=== PATIENT | female | born 1980 | race Caucasian/White ===

== ENCOUNTER 2024-05-27 20:23 | Emergency (ER) | payer OTHER, SELFPAY ==
[2024-05-27] VITALS (13 sets, daily range): BP systolic 96–133; BP diastolic 58–85; PULSE 98–114; TEMP 36.8; O2SAT 98; BMI 23.3
--- NOTE | 2024-05-27 20:29 | XR_ITS ---
The [address] [address] Patient Name: CRISTY CALDERON MRN: [id number] date: 1980 Sex: F Assigned Patient Location: ER Current Patient Location: Accession/Order Number: [id number] Exam Date: 05/27/2024 20:40 Report Date: 05/27/2024 22:20 At the request of: PATRIC ARCEO Procedure: XR chest 1V EXAM: XR chest 1V HISTORY: Dizziness COMPARISON: None. TECHNIQUE: Chest X-ray AP, 1 view FINDINGS: Support devices: None. Lungs/pleura: No consolidation, effusion, or pneumothorax. Heart and mediastinum: Normal contours. Bones: No acute abnormality identified. XR/XR chest 1V Impression: No radiographic evidence of acute cardiopulmonary process. Electronically authenticated by: SHIRLEY CRANE Date: 05/27/2024 22:20
--- NOTE | 2024-05-27 20:29 | ECG_ITS ---
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
--- NOTE | 2024-05-27 20:31 | ED.GENADUL1 ---
HPI HPI - General Adult General Chief complaint: Dizziness Stated complaint: Dizziness Time Seen by Provider: 05/27/24 20:24 Source: patient Mode of arrival: ambulance Limitations: no limitations History of Present Illness HPI narrative: 44-year-old female presents to the emergency department for dizziness. She did not pass out. She has been at a drug rehab facility for about 63 days and she had eaten dinner and she went outside for smoke. All day she had been feeling well, fatigued. No fever or vomiting or diarrhea or chest pain. She went outside from the smoke and she got very lightheaded and almost passed out but she did not. She states she has been clean from drugs for over 63 days. Related Data Allergies Allergy/AdvReac Type Severity Reaction Status Date / Time No Known Drug Allergies Allergy Verified 05/27/24 20:25 Opioid HPI Opioid Management Most Recent Opioid Data: No Data to Display Review of Systems ROS Narrative A ten point review of systems is negative except as noted above. PFSH PFSH Social History Little interest or pleasure in doing things: not at all Feeling down, depressed, or hopeless: not at all Exam Narrative Exam Narrative: Nurses note and vital signs reviewed and patient is not hypoxic. General: The patient appears well and in no apparent distress. Patient is resting comfortably on cart. Skin: Warm, dry, no pallor noted. There is no rash noted. Head: Normocephalic, atraumatic Eye: Normal conjunctiva, no drainage Ears, Nose, Mouth, and Throat: oral mucosa is moist. Nares patent. Cardiovascular: Regular Rate and Rhythm Respiratory: Patient is in no distress, no accessory muscle use, lungs are clear to auscultation, no wheezing, rales or rhonchi Back: non-tender GI: Soft and nontender Musculoskeletal: The patient has no evidence of calf tenderness, no pitting edema, symmetrical pulses noted bilaterally Neurological: A&O, normal speech, upper and lower extremity strength intact. Psychiatric: Cooperative Constitutional Vital Signs, click to edit/add: Last Vital Signs Temp 98.3 F 05/27/24 20:25 Pulse 112 H 05/27/24 21:50 Resp 28 H 05/27/24 21:50 BP 96/58 05/27/24 21:30 Pulse Ox 98 05/27/24 20:25 O2 Del Method Room Air 05/27/24 20:25 Course Vital Signs Vital signs: Vital Signs Pulse Rate 100 H 05/27/24 20:24 Respiratory Rate 24 H 05/27/24 20:24 Temperature 98.3 F 05/27/24 20:25 Pulse Rate 112 H 05/27/24 21:50 Respiratory Rate 28 H 05/27/24 21:50 Blood Pressure 96/58 05/27/24 21:30 Pulse Oximetry 98 05/27/24 20:25 Oxygen Delivery Method Room Air 05/27/24 20:25 Medical Decision Making MDM Narrative Medical decision making narrative: Her laboratory analysis is negative. COVID and influenza are negative and chest x-ray my interpretation shows no acute findings. She was given IV fluids and Zofran and feels improved and she is able to be discharged. Treatment diagnosis and follow-up were discussed with the patient. Differential Diagnosis Differential Diagnosis: Dehydration, COVID, influenza, viral illness Lab Data Lab results reviewed: Yes I reviewed the patient's lab results Labs: Lab Results 05/27/24 05/27/24 Range/Units 20:32 20:48 WBC 5.0 (4.0-11.0) 10^3/uL RBC 3.94 L (4.20-5.40) 10^6/uL Hgb 11.7 L (12.0-16.0) g/dL Hct 35.6 L (36.0-48.0) % MCV 90.4 (81.0-99.0) fL MCH 29.7 (26.7-34.0) pg MCHC 32.9 (29.9-35.2) g/dL RDW 14.1 (11.0-15.0) % Plt Count 242 (150-450) 10^3/uL MPV 10.8 (9.5-13.5) fL Neut % (Auto) 44.4 (43.0-75.0) % Lymph % (Auto) 39.2 (20.5-60.0) % [facility] % (Auto) 12.4 H (1.7-12.0) % Eos % (Auto) 3.2 (0.9-7.0) % Baso % (Auto) 0.8 (0.2-2.0) % Neut # (Auto) 2.2 (1.4-6.5) 10^3/uL Lymph # (Auto) 2.0 (1.2-3.8) 10^3/uL [facility] # (Auto) 0.6 (0.3-0.8) 10^3/uL Eos # (Auto) 0.2 (0.0-0.7) 10^3/uL Baso # (Auto) 0.0 (0.0-0.1) 10^3/uL Abs Immat Gran (auto) 0.00 (0.00-0.03) 10^3/uL Imm/Tot Granulo (auto) 0.0 (0.0-0.5) % Sodium 142 (136-145) mmol/L Potassium 4.2 (3.5-5.1) mmol/L Chloride 105 (98-107) mmol/L Carbon Dioxide 26.0 (21.0-32.0) mmol/L Anion Gap 15.2 BUN 13.0 (7.0-18.0) mg/dL Creatinine 0.84 (0.55-1.02) mg/dL Est GFR ( Amer) >60 (>=60 mL/min/1.73m^2) Est GFR (Non-Af Amer) >60 (>=60 mL/min/1.73m^2) BUN/Creatinine Ratio 15.5 Glucose 70 L (74-106) mg/dL Calcium 9.2 (8.5-10.1) mg/dL Influenza Type A Ag Negative Influenza Type B Ag Negative SARS-CoV-2 Ag (CV2AG) Negative (NEGATIVE) Imaging Data Chest x-ray: My impression: No acute findings ECG Data Attestation: I personally reviewed and interpreted this ECG as follows: (EKG on my interpretation shows sinus rhythm with rate of 99 and no acute changes.) Discharge Plan Discharge Chief Complaint: Dizziness Clinical Impression: Dizziness Patient Disposition: Home, Self-Care Time of Disposition Decision: 21:53 Condition: Good Mode of Transportation: Private Vehicle Print Language: Czech Instructions: Dizziness (ED) Referrals: Physician,Non-Staff, MD [Primary Care Provider] - 1 week
[2024-05-27] MEDS: 0.9 % SODIUM CHLORIDE 1,000 ML 1000 ML IV (20:45)
[2024-05-27] MEDS: ONDANSETRON PF 4 MG/2 ML VIAL IV (20:45)
[2024-05-27 20:53] LABS: Basophils Percent Auto 0.8 % (0.2-2.0); Eosinophils Absolute Auto 0.2 10^3/uL (0.0-0.7); Eosinophils Percent Auto 3.2 % (0.9-7.0); Hematocrit 35.6 % (36.0-48.0); Hemoglobin 11.7 g/dL (12.0-16.0); Lymphocytes Percent Auto 39.2 % (20.5-60.0); Mean Corpuscular HGB Conc 32.9 g/dL (29.9-35.2); Mean Corpuscular Hemoglobin 29.7 pg (26.7-34.0); Mean Corpuscular Volume 90.4 fL (81.0-99.0); Mean Platelet Volume 10.8 fL (9.5-13.5); Monocytes Absolute Auto 0.6 10^3/uL (0.3-0.8); Monocytes Percent Auto 12.4 % (1.7-12.0); Neutrophils Absolute Auto 2.2 10^3/uL (1.4-6.5); Neutrophils Percent Auto 44.4 % (43.0-75.0); Platelet Count 242 10^3/uL (150-450); Red Blood Count 3.94 10^6/uL (4.20-5.40); Red Cell Distribution Width 14.1 % (11.0-15.0)
[2024-05-27 21:02] LABS: Anion Gap 15.2; BUN Creatinine Ratio 15.5; Calcium 9.2 mg/dL (8.5-10.1); Chloride 105 mmol/L (98-107); Estimated GFR (African America >60 (>=60 mL/min/1.73m^2); Estimated GFR (Non-African Ame >60 (>=60 mL/min/1.73m^2); Glucose 70 mg/dL (74-106); Potassium 4.2 mmol/L (3.5-5.1); Sodium 142 mmol/L (136-145)
[2024-05-27 21:04] LABS: Influenza Virus A Antigen Negative; Influenza Virus B Antigen Negative; Internal Control Within Normal Limits; SARS-CoV-2 Ag NEGATIVE (NEGATIVE)
== END 2024-05-27 22:06 | disposition home or self-care (01) ==
PROVIDERS: Emergency Provider Emergency Medicine
DX: R42 Dizziness and giddiness (principal); Z20.822 Contact with and (suspected) exposure to COVID-19
CPT/HCPCS: 36415; 71045; 80048; 85025; 87804; 87811; 93005; 96361; 96374; 99285; J2405

== ENCOUNTER 2024-05-31 07:05 | Outpatient (OUT) | payer OTHER, SELFPAY ==
--- NOTE | 2024-05-31 | MM_ITS ---
Patient Name: CRISTY CALDERON MR#: [id number] : 1980 Exam Date: 05/31/2024 Ordering Doctor: DR Home Jo . RADIOLOGY REPORT PROCEDURE: MM TOMOSYNTHESIS SCREENING BI COMPARISON: None. INDICATIONS: Screening mammography Calculator Name NCI Breast Cancer Risk Assessment Tool 5 Year Breast Cancer Risk 0.80% Lifetime Breast Cancer Risk 9.80% Personal Breast Cancer No Personal Ovarian Cancer No Treatments None Family Cancers None LOCATION: The [facility] BREAST COMPOSITION: The breasts are heterogeneously dense,which may obscure small masses. FINDINGS: DIAGNOSTIC CATEGORY 2--BENIGN FINDING. NO CHANGE FROM COMPARISON. Scattered benign-appearing calcifications are present. RIGHT BREAST: No significant suspicious finding. LEFT BREAST: No significant suspicious finding. RECOMMENDATIONS: ROUTINE MAMMOGRAM AND CLINICAL EVALUATION IN 12 MONTHS. PLEASE NOTE: A NORMAL MAMMOGRAM DOES NOT EXCLUDE THE POSSIBILITY OF BREAST CANCER. A CLINICALLY SUSPICIOUS PALPABLE LUMP SHOULD BE BIOPSIED. Dictated by: Elroy Brar MD on 05/31/2024 at 08:52 Approved by: Elroy Brar MD on 05/31/2024 at 08:53
--- OUTSIDE RECORDS SUMMARY | 2024-05-31 07:08 | XMS_ITS | CCD ---
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 Stage\X09\Description\X09\X09\X09\X09\eGFR (mL/min/1.73m2) G1\X09\Normal or high\X09\X09\X09\X09\>=90 G2\X09\Mildly decreased\X09\X09\X09\ G3a\X09\Mildly to moderately decreased\X09\ G3b\X09\Moderately to severely decreased\X09\ G4\X09\Severely decreased\X09\X09\X09\ G5\X09\Kidney Failure\X09\X09\X09\X09\<15 Release to patient->Immediate Performed By: #### L [id number] #### [address] Urea nitrogen [Mass/Vol] 10 mg/dL Normal 7-25 [facility] Comment on above: Order Comment: KDIGO 2012 GFR Categories Stage\X09\Description\X09\X09\X09\X09\eGFR (mL/min/1.73m2) G1\X09\Normal or high\X09\X09\X09\X09\>=90 G2\X09\Mildly decreased\X09\X09\X09\ G3a\X09\Mildly to moderately decreased\X09\ G3b\X09\Moderately to severely decreased\X09\ G4\X09\Severely decreased\X09\X09\X09\ G5\X09\Kidney Failure\X09\X09\X09\X09\<15 Release to patient->Immediate Performed By: #### L [id number] #### [place] [id number] [facility] CBC W/DIFFon 09-18-2023 BASOPHILS ABS AUTO 0.0 K/uL Normal 0.0-0.1 [facility] Comment on above: Order Comment: Relea se to patient->Immediate Performed By: #### L [id number] #### [address] Basophils/100 WBC (Bld) 0.3 % Normal [facility] Comment on above: Order Comment: Relea se to patient->Immediate Performed By: #### L [id number] #### [address] Eosinophils (Bld) [#/Vol] 0.0 10*3/uL Normal 0.0-0.4 [facility] Comment on above: Order Comment: Relea se to patient->Immediate Performed By: #### L [id number] #### [address] Eosinophils/100 WBC (Bld) 0.1 % Normal [facility] Comment on above: Order Comment: Relea se to patient->Immediate Performed By: #### L [id number] #### [address] Erythrocyte distribution width (RBC) [Ratio] 14.6 % Normal 11.7-15.2 [facility] Comment on above: Order Comment: Relea se to patient->Immediate Performed By: #### L [id number] #### [address] Hematocrit (Bld) [Volume fraction] 28.3 % Abnormal 35.8-46.5 [facility] Comment on above: Order Comment: Relea se to patient->Immediate Performed By: #### L [id number] #### [address] Hemoglobin (Bld) [Mass/Vol] 9.5 g/dL Abnormal 12.1-15.8 [facility] Comment on above: Order Comment: Relea se to patient->Immediate Performed By: #### L [id number] #### [address] Lymphocytes (Bld) [#/Vol] 0.8 10*3/uL Normal 0.8-3.6 [facility] Comment on above: Order Comment: Relea se to patient->Immediate Performed By: #### L [id number] #### [address] Lymphocytes/100 WBC (Bld) 11.1 % Normal [facility] Comment on above: Order Comment: Relea se to patient->Immediate Performed By: #### L [id number] #### [address] MCH (RBC) [Entitic mass] 29.2 pg Normal 28.4-33.4 [facility] Comment on above: Order Comment: Relea se to patient->Immediate Performed By: #### L [id number] #### [address] MCHC (RBC) [Mass/Vol] 33.5 g/dL Normal 31.1-37.0 [facility] Comment on above: Order Comment: Relea se to patient->Immediate Performed By: #### L [id number] #### [address] MCV (RBC) [Entitic vol] 87.3 fL Normal 85.0-99.0 [facility] Comment on above: Order Comment: Relea se to patient->Immediate Performed By: #### L [id number] #### [address] Monocytes (Bld) [#/Vol] 0.5 10*3/uL Normal 0.3-0.9 [facility] Comment on above: Order Comment: Relea se to patient->Immediate Performed By: #### L [id number] #### [address] Monocytes/100 WBC (Bld) 7.5 % Normal [facility] Comment on above: Order Comment: Relea se to patient->Immediate Performed By: #### L [id number] #### [address] NEUTROPHIL ABS AUTO 5.5 K/uL Normal 2.0-7.3 [facility] Comment on above: Order Comment: Relea se to patient->Immediate Performed By: #### L [id number] #### [address] Neutrophils/100 WBC (Bld) 81.0 % Normal [facility] Comment on above: Order Comment: Relea se to patient->Immediate Performed By: #### L [id number] #### [address] Platelets (Bld) [#/Vol] 180 10*3/uL Normal 154-393 [facility] Comment on above: Order Comment: Relea se to patient->Immediate Performed By: #### L [id number] #### [address] RBC (Bld) [#/Vol] 3.25 10*6/uL Abnormal 3.86-5.17 [facility] Comment on above: Order Comment: Relea se to patient->Immediate Performed By: #### L [id number] #### [address] WBC (Bld) [#/Vol] 6.9 10*3/uL Normal 4.0-10.5 [facility] Comment on above: Order Comment: Relea se to patient->Immediate Performed By: #### L [id number] #### [address] ED Provider Noteson 09-18-19 24 ED Provider Notes Encounter Department : [facility] EMERGENCY ED Provider Notes by Yasir Fraser DO at 09/18/2023 3:27 PM Author: Rosa Abrahamrvice: Emergency MedicineAuthor Type: ED Physician Filed: 09/18/2023 3:29 PMDate of Service: 09/18/2023 3:27 PMStatus: Signed Road Advisor: Yasir Fraser DO (ED Physician) [facility] [address] [place] [address] Dept: [phone] I saw and evaluated the patient and have provided the substantive portion of the assessment, direction of care and disposition. I have discussed with the SUZIE and agree with the findings and plan. 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 Here her electrolytes are normal, she is not anemic, her lungs are completely clear, no respiratory distress. Pulse oxygenation normal. We discussed results. ED MEDICATIONS The patient was treated with the following in the Emergency Department: Medications 0.9 % sodium chloride 1,000 mL bolus ( Intravenous New Bag 09/18/23 1449) acetaminophen (TYLENOL) tablet 650 mg (650 mg Oral Given 09/18/23 1448) DISCHARGE MEDICATION(S) / CHANGES TO HOME MEDICATIONS New Prescriptions No medications on file ==== -CHART REVIEW / summary / source of outside record review if applicable: -DIFFERENTIAL DIAGNOSIS: Electrolyte abnormality, anemia, COVID -COMORBIDITIES impacting presentation- Stability/Severity include: COVID-positive, current Patient Active Problem List Diagnosis -Irritable bowel syndrome -Seborrheic dermatitis of scalp -Suicide attempt (HCC) -Depressive disorder -Anemia -Benzodiazepine (tranquilizer) overdose -Weight loss -Underweight -Methamphetamine abuse (HCC) -Nicotine dependence with withdrawal -Back pain -Hypokalemia -SOCIAL DETERMINANTS of health impacting this presentation, if applicable: Social Determinants of Health Tobacco Use: High Risk (09/18/2023) Patient History -Smoking Tobacco Use: Some Days -Smokeless Tobacco Use: Never -Passive Exposure: Not on file Alcohol Use: Not on file Financial Resource Strain: Not on file Food Insecurity: Not on file Transportation Needs: Not on file Physical Activity: Not on file Stress: Not on file Social Connections: Not on file Intimate Partner Violence: Not on file Depression: Not on file Housing Stability: Not on file -Decision regarding hospitalization or escalation of care, if applicable: -Discussion(s) with other providers about care, if applicable: ==== CHIEF COMPLAINT Chief Complaint Patient presents with -Tingling HPI TRIAGE NOTE: Verito Scherer RN 09/18/2023 1:39 PM Signed Pt arrived to ED by [facility] tingling in their extremities secondary to being Covid positive as dx on 09/16. Pt states they feel weak and as if they can't catch a full breath . Pt asymptomatic otherwise, respiratons even and unlabored in triage. AANDOx4, NAD Patient presented with complaints of tingling in her hands, patient also feels short of breath and congested and achy. She was diagnosed with COVID-19 2 days ago. SAENZ PORTIONS OF PHYSICAL EXAM ED Triage Vitals [09/18/23 1339] BP(!) 158/79 Temp99.1 ?F (37.3 ?C) Pulse(!) 116 Resp17 RrM320 % Hdycon578 lb (56.7 kg) Josefina Coma Scale Score15 BMI (Calculated)20.8 Patient is awake and alert, heart rate 108, lungs completely clear, no respiratory distress, abdomen soft and nontender. RADIOLOGY/EKG/LABS Labs include: Recent Results (from the past 24 hour(s)) CBC w/ Diff Collection Time: 09/18/23 2:14 PM ResultValueRef Range WBC6.94.0 - 10.5 K/uL RBC3.25 (A)3.86 - 5.17 M/uL HGB9.5 (A)12.1 - 15.8 g/dL HCT28.3 (A)35.8 - 46.5 % MCV87.385.0 - 99.0 fl MCH29.228.4 - 33.4 pg MCHC33.531.1 - 37.0 g/dL RDW14.611.7 - 15.2 % Platelet szusp654469 - 393 K/uL Neutrophils %81.0% Lymphocytes %11.1% Monocytes %7.5% Eosinophils %0.1% Basophils %0.3% Neutrophils Absolute5.52.0 - 7.3 K/uL Lymphocytes Absolute0.80.8 - 3.6 K/uL Monocytes Absolute0.50.3 - 0.9 K/uL Eosinophils Absolute0.00.0 - 0.4 K/uL Basophils Absolute0.00.0 - 0.1 K/uL Basic Metabolic Panel Collection Time: 09/18/23 2:14 PM ResultValueRef Range Dnlagp871 (A)136 - 145 mmol/L Potassium4.13.5 - 5.1 mmol/L Fqiauack98873 - 107 mmol/L SE44192 - 31 mmol/L Anion Gap5 (A)7 - 16 mmol/L Vgaypbe0520 - 109 mg/dL MLD403 - 25 mg/dL Creatinine0.53 (A)0.6 - 1.2 mg/dL Calcium8.1 (A)8.6 - 10.2 mg/dL GFR Female>90>90 mL/min/1.73m2 REPEAT VITALS BP: 115/79 (09/18 1425) Temp: 99.1 ?F (37.3 ?C) (09/18 1339) Pulse: 106 (09/18 1425) Resp: 15 (09/18 1425) SpO2: 100 (more content not included)... [facility] ED Provider Notes Encounter Department : [facility] EMERGENCY ED Provider Notes by BRITTANY Bean at 09/18/2023 2:21 PM Author: BRITTANY BeanService: Emergency MedicineAuthor Type: Nurse Practitioner Filed: 09/18/2023 3:51 PMDate of Service: 09/18/2023 2:21 PMStatus: Signed Road Advisor: BRITTANY Bean (Nurse Practitioner)Cosigner : Yasir Fraser DO at 09/18/2023 9:31 PM FINAL IMPRESSION(S) ICD-10-CM 1.COVID-19 U07.1 2.Paresthesia of both hands R20.2 DISPOSITION PLAN Discharge home DISCHARGE MEDICATION(S) / CHANGES TO HOME MEDICATIONS New Prescriptions No medications on file ==== CHIEF COMPLAINT Chief Complaint Patient presents with -Tingling TRIAGE NOTE: Verito Scherer RN 09/18/2023 1:39 PM Signed Pt arrived [facility] ED [facility] tingling in their extremities secondary to being Covid positive as dx on 09/16. Pt states they feel weak and as if they can't catch a full breath . Pt asymptomatic otherwise, respiratons even and unlabored in triage. AANDOx4, NAD HPI / RELEVANT ROS Cristy Calderon is a 43 y.o. female in bed IR ED 03/23 who presents to the ED with concerns for tingling to bilateral hands. Patient states she has been having some tingling to her bilateral hands. Patient states she continues with cough, generalized body ache congestion and overall not feeling well. States she was diagnosed with COVID-19 2 days ago. States her symptoms are persistent. States she is currently at [facility] facility for rehab as she has history of methamphetamine use. Patient states she was at [facility] but since being diagnosed with COVID she had to go to a new facility. Patient states she wanted to be reevaluated as she is continued with her COVID symptoms. She denies any chest pain, abdominal pain, vomiting or diarrhea. Denies any focal weakness. Denies any urinary complaints. Denies any headaches, lightheadedness or dizziness. Patient denies any other concerns. Other sources include none adding the following history: none Review of Systems Constitutional: Positive for chills. Negative for fever. HENT: Positive for congestion and sore throat. Eyes: Negative for blurred vision. Respiratory: Positive for cough. Negative for shortness of breath. Cardiovascular: Negative for chest pain and palpitations. Gastrointestinal: Negative for abdominal pain, diarrhea, nausea and vomiting. Genitourinary: Negative for dysuria. Musculoskeletal: Positive for myalgias. Neurological: Negative for headaches. PAST MEDICAL HISTORY / FAMILY HISTORY Past Medical History: DiagnosisDate -Anemia -Anxiety -Depression -Hepatitis C -History of chicken pox -IBS (irritable bowel syndrome) -Methamphetamine abuse (HCC)04/30/2022 Family History ProblemRelationAge of Onset -Drug abuseMother -COPDMother -Heart diseaseMother -Mental illnessMother -Substance abuseMother -Alcohol abuseMother -Drug abuseFather -CancerFather -Alcohol abuseFather -Substance abuseFather -Heart diseaseMaternal Grandfather Above past medical conditions reviewed and verified by me. SOCIAL HISTORY Social History Socioeconomic History -Marital status:Single -Number of children:1 -Years of education:12 Tobacco Use -Smoking status:Some Days Packs/day:1.00 Years:20.00 Additional pack years:0.00 Total pack years:20.00 Types:Cigarettes Last attempt to quit:01/31/2016 Years since quittin.6 -Smokeless tobacco:Never -Tobacco comments: e-cig Vaping Use -Vaping Use:Every day -Substances:Nicotine -Devices:Disposable Substance and Sexual Activity -Alcohol use:No Alcohol/week:0.0 standard drinks of alcohol -Drug use:Not Currently Types:IV, Heroin, Methamphetamines Comment: using daily for couple weeks -Sexual activity:Yes control/protection:Kaplan rgical Comment: condom use: never Other TopicsConcern -Daily Caffeine Intake ?No -Do you exercise regularly ?No Above social elements reviewed and verified by me. SURGICAL HISTORY Past Surgical History: ProcedureLateralityDa te -LEEP -TUBAL LIGATION CURRENT MEDICATIONS No outpatient medications have been marked as taking for the 09/18/23 encounter (Hospital Encounter). ALLERGIES No Known Allergies PERTINENT PHYSICAL EXAM VITAL SIGNS: ED Triage Vitals [09/18/23 1339] BP(!) 158/79 Temp99.1 ?F (37.3 ?C) Pulse(!) 116 Resp17 AqS019 % Aknads383 lb (56.7 kg) Josefina Coma Scale Score15 BMI (Calculated)20.8 Physical Exam Constitutional: Appearance: Normal appearance. HENT: Head: Normocephalic and atraumatic. Right Ear: External ear normal. Left Ear: External ear normal. Nose: Congestion present. No rhinorrhea. Mouth/Throat: Mouth: Mucous membranes are moist. Pharynx: Oropharynx is clear. No oropharyngeal exudate or posterior oropharyngeal erythema. Eyes: Extraocular Movements: (more content not included)... Normal [facility] CBC W/DIFFon 09-16-2023 BASOPHILS ABS AUTO 0.0 K/uL Normal 0.0-0.1 [facility] Comment on above: Order Comment: Relea se to patient->Immediate Performed By: #### L [id number] #### [address] Basophils/100 WBC (Bld) 0.5 % Normal [facility] Comment on above: Order Comment: Relea se to patient->Immediate Performed By: #### L [id number] #### [address] Eosinophils (Bld) [#/Vol] 0.0 10*3/uL Normal 0.0-0.4 [facility] Comment on above: Order Comment: Relea se to patient->Immediate Performed By: #### L [id number] #### [address] Eosinophils/100 WBC (Bld) 0.0 % Normal [facility] Comment on above: Order Comment: Relea se to patient->Immediate Performed By: #### L [id number] #### [address] Erythrocyte distribution width (RBC) [Ratio] 14.5 % Normal 11.7-15.2 [facility] Comment on above: Order Comment: Relea se to patient->Immediate Performed By: #### L [id number] #### [address] Hematocrit (Bld) [Volume fraction] 30.3 % Abnormal 35.8-46.5 [facility] Comment on above: Order Comment: Relea se to patient->Immediate Performed By: #### L [id number] #### [address] Hemoglobin (Bld) [Mass/Vol] 10.2 g/dL Abnormal 12.1-15.8 [facility] Comment on above: Order Comment: Relea se to patient->Immediate Performed By: #### L [id number] #### [address] Lymphocytes (Bld) [#/Vol] 0.6 10*3/uL Abnormal 0.8-3.6 [facility] Comment on above: Order Comment: Relea se to patient->Immediate Performed By: #### L [id number] #### [address] Lymphocytes/100 WBC (Bld) 16.3 % Normal [facility] Comment on above: Order Comment: Relea se to patient->Immediate Performed By: #### L [id number] #### [address] MCH (RBC) [Entitic mass] 29.5 pg Normal 28.4-33.4 [facility] Comment on above: Order Comment: Relea se to patient->Immediate Performed By: #### L [id number] #### [address] MCHC (RBC) [Mass/Vol] 33.6 g/dL Normal 31.1-37.0 [facility] Comment on above: Order Comment: Relea se to patient->Immediate Performed By: #### L [id number] #### [address] MCV (RBC) [Entitic vol] 87.6 fL Normal 85.0-99.0 [facility] Comment on above: Order Comment: Relea se to patient->Immediate Performed By: #### L [id number] #### [address] Monocytes (Bld) [#/Vol] 0.3 10*3/uL Normal 0.3-0.9 [facility] Comment on above: Order Comment: Relea se to patient->Immediate Performed By: #### L [id number] #### [address] Monocytes/100 WBC (Bld) 9.3 % Normal [facility] Comment on above: Order Comment: Relea se to patient->Immediate Performed By: #### L [id number] #### [address] [place] [address] [facility] NEUTROPHIL ABS AUTO 2.7 K/uL Normal 2.0-7.3 [facility] Comment on above: Order Comment: Relea se to patient->Immediate Performed By: #### L [id number] #### [place] [id number] [facility] Neutrophils/100 WBC (Bld) 73.9 % Normal [facility] Comment on above: Order Comment: Relea se to patient->Immediate Performed By: #### L [id number] #### [address] [address] [facility] Platelets (Bld) [#/Vol] 155 10*3/uL Normal 154-393 [facility] Comment on above: Order Comment: Relea se to patient->Immediate Performed By: #### L [id number] #### [place] [id number] [facility] RBC (Bld) [#/Vol] 3.46 10*6/uL Abnormal 3.86-5.17 [facility] Comment on above: Order Comment: Relea se to patient->Immediate Performed By: #### L [id number] #### [place] [id number] [facility] WBC (Bld) [#/Vol] 3.6 10*3/uL Abnormal 4.0-10.5 [facility] Comment on above: Order Comment: Relea se to patient->Immediate Performed By: #### L [id number] #### [address] [address] [facility] COMPREHENSIVE METABOLIC PANE Ren 09-16-2023 Albumin [Mass/Vol] 3.8 g/dL Normal 3.5-5.7 [facility] Comment on above: Order Comment: Relea se to patient->Immediate Performed By: #### L [id number] #### [facility] [address] [address] Albumin/Globulin [Mass ratio] 1.5 {ratio} Normal 1.0-2.0 [facility] Comment on above: Order Comment: Relea se to patient->Immediate Performed By: #### L [id number] #### [facility] [address] [place] [address] ALP [Catalytic activity/Vol] 55 U/L Normal 34-104 [facility] Comment on above: Order Comment: Relea se to patient->Immediate Performed By: #### L [id number] #### [facility] [address] [place] [address] ALT [Catalytic activity/Vol] 28 U/L Normal 7-52 [facility] Comment on above: Order Comment: Relea se to patient->Immediate Performed By: #### L [id number] #### [facility] [address] [place] [address] Anion gap [Moles/Vol] 6 mmol/L Abnormal 7-16 [facility] Comment on above: Order Comment: Relea se to patient->Immediate Performed By: #### L [id number] #### [facility] [address] [place] [address] AST [Catalytic activity/Vol] 29 U/L Normal 13-39 [facility] Comment on above: Order Comment: Relea se to patient->Immediate Performed By: #### L [id number] #### [facility] [address] [place] [address] Bilirubin [Mass/Vol] 0.2 mg/dL Abnormal 0.3-1.0 [facility] Comment on above: Order Comment: Relea se to patient->Immediate Performed By: #### L [id number] #### [facility] [address] [place] [address] Calcium [Mass/Vol] 8.3 mg/dL Abnormal 8.6-10.2 [facility] Comment on above: Order Comment: Relea se to patient->Immediate Performed By: #### L [id number] #### [facility] [address] [place] [address] Chloride [Moles/Vol] 102 mmol/L Normal 98-107 [facility] Comment on above: Order Comment: Relea se to patient->Immediate Performed By: #### L [id number] #### [facility] [address] [place] [address] CO2 [Moles/Vol] 22 mmol/L Normal 21-31 [facility] Comment on above: Order Comment: Relea se to patient->Immediate Performed By: #### L [id number] #### [facility] [address] [place] [address] Creatinine [Mass/Vol] 0.52 mg/dL Abnormal 0.6-1.2 [facility] Comment on above: Order Comment: Relea se to patient->Immediate Performed By: #### L [id number] #### [facility] [address] [place] [address] GFR FEMALE >90 Normal >90 [facility] Comment on above: Order Comment: Relea se to patient->Immediate Result Comment: Repo rted eGFR is based on the CKD-EPI 2020 equation that does not use a race coefficient. Performed By: #### L [id number] #### [facility] [address] [place] [address] Globulin (S) [Mass/Vol] 2.5 g/dL Abnormal 2.6-4.2 [facility] Comment on above: Order Comment: Relea se to patient->Immediate Performed By: #### L [id number] #### [facility] [address] [place] [address] Glucose [Mass/Vol] 115 mg/dL Abnormal 74-109 [facility] Comment on above: Order Comment: Relea se to patient->Immediate Performed By: #### L [id number] #### [facility] [address] [place] [address] Potassium [Moles/Vol] 3.6 mmol/L Normal 3.5-5.1 [facility] Comment on above: Order Comment: Relea se to patient->Immediate Performed By: #### L [id number] #### [facility] [address] [place] [address] Protein [Mass/Vol] 6.3 g/dL Normal 6.0-8.3 [facility] Comment on above: Order Comment: Relea se to patient->Immediate Performed By: #### L [id number] #### [facility] [address] [place] [address] Sodium [Moles/Vol] 130 mmol/L Abnormal 136-145 [facility] Comment on above: Order Comment: Relea se to patient->Immediate Performed By: #### L [id number] #### [facility] [address] [place] [address] Urea nitrogen [Mass/Vol] 12 mg/dL Normal 7-25 [facility] Comment on above: Order Comment: Relea se to patient->Immediate Performed By: #### L [id number] #### [facility] [address] [place] [address] ED Provider Noteson 09-16-19 ED Provider Notes Encounter Department : [facility] EMERGENCY ED Provider Notes by Rachel Ornelas PA-C at 09/16/2023 6:51 PM Author: Henrry Claudiorvice: Emergency MedicineAuthor Type: Physician Admitting Supervisor Filed: 09/16/2023 9:38 PMDate of Service: 09/16/2023 6:51 PMStatus: Signed Road Advisor: Rachel Ornelas PA-C (Physician Admitting Supervisor)Cosigner: Daria Mesa DO at 09/16/2023 10:03 PM FINAL IMPRESSION(S) ICD-10-CM 1.COVID-19 U07.1 2.Febrile illness R50.9 3.Hyponatremia E87.1 4.Leukopenia, unspecified type D72.819 DISPOSITION PLAN Discharge home with outpatient follow-up DISCHARGE MEDICATION(S) / CHANGES TO HOME MEDICATIONS New Prescriptions BROMPHENIRAMINE-PSEUD OEPHEDRINE-DEXTROMETH ORPHAN (BROMFED DM) 2-30-10 MG/5 ML SYRUP Take 10 mLs by mouth every 4 hours as needed for Cough for up to 7 days. IBUPROFEN (MOTRIN) 600 MG TABLET Take 1 tablet (600 mg total) by mouth every 6 hours as needed for Pain for up to 7 days. ONDANSETRON (ZOFRAN-ODT) 4 MG DISINTEGRATING TABLET Take 2 tablets (8 mg total) by mouth every 8 hours as needed for Nausea for up to 5 days. ==== CHIEF COMPLAINT Chief Complaint Patient presents with -Nasal Congestion -Fever (9 Weeks To 74 Years) HPI/PERTINENT REVIEW OF SYSTEMS Cristy Calderon is a 43 y.o. female with significant past medical history methamphetamine abuse in bed 10 who presents to the ED with fever and tachycardia with COVID-19 diagnosis. Patient reports that she has had a mildly productive cough, fever, nausea, generalized headache, body aches, sore throat, congestion that started last night. She is currently staying at [facility] for history of methamphetamine abuse but states that she has to return to [facility] while she is positive for COVID-19. She tested positive this morning. She is not vaccinated for COVID-19. States her headache is generalized and is not worst headache of her life. Denies chest pain, shortness of breath, palpitations, vomiting, diarrhea, constipation, dark or bloody stools, dysuria, urgency, frequency, hematuria, numbness, tingling, focal weakness. She reports she was at rehab for methamphetamine abuse and last use August 11, 2023. Patient does confirm some anxiety but denies homicidal or suicidal ideation. States she does take multiple medications for anxiety and depression. Patient is their own historian. PAST MEDICAL HISTORY / FAMILY HISTORY Past Medical History: DiagnosisDate -Anemia -Anxiety -Depression -Hepatitis C -History of chicken pox -IBS (irritable bowel syndrome) -Methamphetamine abuse ([facility])04/30/2022 Family History ProblemRelationAge of Onset -Drug abuseMother -COPDMother -Heart diseaseMother -Mental illnessMother -Substance abuseMother -Alcohol abuseMother -Drug abuseFather -CancerFather -Alcohol abuseFather -Substance abuseFather -Heart diseaseMaternal Grandfather Above past medical conditions reviewed and verified by me. SOCIAL HISTORY Social History Socioeconomic History -Marital status:Single -Number of children:1 -Years of education:12 Tobacco Use -Smoking status:Some Days Packs/day:1.00 Years:20.00 Additional pack years:0.00 Total pack years:20.00 Types:Cigarettes Last attempt to quit:01/31/2016 Years since quittin.6 -Smokeless tobacco:Never -Tobacco comments: e-cig Vaping Use -Vaping Use:Every day -Substances:Nicotine -Devices:Disposable Substance and Sexual Activity -Alcohol use:No Alcohol/week:0.0 standard drinks of alcohol -Drug use:Not Currently Types:IV, Heroin, Methamphetamines Comment: using daily for couple weeks -Sexual activity:Yes control/protection:Kaplan rgical Comment: condom use: never Other TopicsConcern -Daily Caffeine Intake ?No -Do you exercise regularly ?No Above social elements reviewed and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 Psychiatric disorder Suicidal ideation Amphetamine abuse (HC CODE) MDD (major depressive disorder), recurrent severe, without psychosis (HC CODE) Short Term Goals Reduce signs/symptoms of Presenting Problem. Patient will remain safe on the care unit. Patient will deny suicidal ideations. Patient will attend group. Patient will participate in groups to develop positive effective coping skills. Patient will participate in discharge planning with Transmission Calibration Engineer. Patient will be able to effectively communicate needs. Patient will create a plan for safety and sobriety Fire Control Technician G Goals Patient will be established with an outpatient provider for mental health services. Patient will comply with medication regimen. Patient will attend all scheduled follow up appointments. Patient will adhere to a plan for safety and sobriety Groups Offered: Positive Affirmations, Suicide Safety Plan, Positive Coping Skills, Chemical Dependency, Anger Management, Stress Management, Socialization, Pet Therapy, Recreation Therapy, and others based on patient request or need. Instruction Method/Type: Group, Individual, Video, Verbal, Handouts, Games, Worksheets, Group discussion, and others based on patient request or need. Plan of Care: Medication evaluation and stabilization, offer groups and support, provide safe environment, develop safety plan and coping skills. Need for Family or Significant Other Contact? Yes Does the patient need additional help after discharge? Yes Home Health Referral needed? No Discharge Planning Aug 18, 2023 Anticipated Discharge Disposition: Residential Treatment Anticipated Transportation at Discharge To be arranged. Barriers to Discharge: Pt is not psychiatrically stable. Follow up Information: Rosendo Chapman MD [facility] [phone] Follow up Rx Payment Plan: Payor: [employer] / Plan: BLUE CROSS-OUT OF AREA / Product Type: *No Product type* / Julieth Hayes TIPPING MACHINE OPERATOR AUTOMATIC, GLOBAL MARKETING INTERN Normal [facility] COMPREHENSIVE METABOLIC PANE Ren 08-17-2023 Albumin [Mass/Vol] 4.3 g/dL Normal 3.5-5.2 [facility] Comment on above: Performed By: #### L [id number] #### [place] [address] Albumin/Globulin [Mass ratio] 1.6 {ratio} Normal 0.8-2.6 [facility] Comment on above: Performed By: #### L [id number] #### [place] [address] ALP [Catalytic activity/Vol] 72 U/L Normal 23-144 [facility] Comment on above: Performed By: #### L [id number] #### [place] [address] ALT [Catalytic activity/Vol] 23 U/L Normal 0-60 [facility] Comment on above: Performed By: #### L [id number] #### [place] [address] Anion gap [Moles/Vol] 12 mmol/L Normal 5-15 [facility] Comment on above: Performed By: #### L [id number] #### [place] [address] AST [Catalytic activity/Vol] 18 U/L Normal 0-46 [facility] Comment on above: Performed By: #### L [id number] #### [place] [address] Bilirubin [Mass/Vol] 0.2 mg/dL Normal 0.0-1.2 [facility] Comment on above: Performed By: #### L [id number] #### [place] [address] Calcium [Mass/Vol] 9.7 mg/dL Normal 8.5-10.5 [facility] Comment on above: Performed By: #### L [id number] #### [place] [address] Chloride [Moles/Vol] 99 mmol/L Normal 96-110 [facility] Comment on above: Performed By: #### L [id number] #### [place] [address] CO2 [Moles/Vol] 27 mmol/L Normal 19-32 [facility] Comment on above: Performed By: #### L [id number] #### [place] [address] Creatinine [Mass/Vol] 0.7 mg/dL Normal 0.5-1.2 [facility] Comment on above: Performed By: #### L [id number] #### [place] [address] ESTIMATED GFR 110 mL/min/1.73m*2 Normal >=60 [facility] Comment on above: Performed By: #### L [id number] #### [place] [address] Globulin (S) [Mass/Vol] 2.7 g/dL Normal 1.9-3.[address] [facility] Comment on above: Performed By: #### L [id number] #### [place] [address] Glucose [Mass/Vol] 101 mg/dL High 70-99 [facility] Comment on above: Performed By: #### L [id number] #### [place] [address] Potassium [Moles/Vol] 3.9 mmol/L Normal 3.4-5.3 [facility] Comment on above: Performed By: #### L [id number] #### [place] [address] Protein [Mass/Vol] 7.0 g/dL Normal 6.0-8.3 [facility] Comment on above: Performed By: #### L [id number] #### [place] [address] Sodium [Moles/Vol] 138 mmol/L Normal 135-148 [facility] Comment on above: Performed By: #### L [id number] #### [place] [address] Urea nitrogen [Mass/Vol] 22 mg/dL Normal 3-29 [facility] Comment on above: Performed By: #### L [id number] #### [place] [address] Urea nitrogen/Creatinine [Mass ratio] 31 mg/mg High 7-25 [facility] Comment on above: Performed By: #### L [id number] #### [place] [address] Albumin [Mass/Vol] 4.3 g/dL 3.5 - 5.2 g/dL [facility] ALP [Catalytic activity/Vol] 72 U/L 23 - 144 U/L [facility] ALT [Catalytic activity/Vol] 23 U/L 0 - 60 U/L [facility] Amino beta guanidinopropionate Ql (P) 1.6 0.8 - 2.6 [facility] Anion gap [Moles/Vol] 12 mmol/L 5 - 15 Pre [facility] AST [Catalytic activity/Vol] 18 U/L 0 - 46 U/L [facility] Bilirubin [Mass/Vol] 0.2 mg/dL 0.0 - 1 .2 mg/dL [facility] Calcium [Mass/Vol] 9.7 mg/dL 8.5 - 10. 5 mg/dL [facility] Chloride [Moles/Vol] 99 mmol/L [facility] CO2 [Moles/Vol] 27 mmol/L [facility] Creatinine [Mass/Vol] 0.7 mg/dL 0.5 - 1.2 mg/dL [facility] GFR/1.73 sq M.predicted MDRD (S/P/Bld) [Vol rate/Area] 110 mL/min/{1.73_m2} - PINF [facility] Globulin (S) [Mass/Vol] 2.7 g/dL 1.9 - 3.6 g/dL [facility] Glucose [Mass/Vol] 101 mg/dL High 70 - 99 mg/dL Pre [facility] Interpretation and review of laboratory results Abnormal [facility] Potassium [Moles/Vol] 3.9 mmol/L Pre [facility] Protein [Mass/Vol] 7.0 g/dL 6.0 - 8.3 g/dL [facility] Sodium [Moles/Vol] 138 mmol/L [facility] Urea nitrogen [Mass/Vol] 22 mg/dL 3 - 29 mg/d L [facility] Urea nitrogen/Creatinine [Mass ratio] 31 mg/mg High 7 - 25 [facility] HEMOGLOBIN A1C W/ EST AVG GL UCOSEon 08-17-2023 Average glucose Estimated from glycated hemoglobin (Bld) [Mass/Vol] 114 mg/dL MG/DL [facility] HbA1c (Bld) [Mass fraction] 5.6 % 4.0 - 6.0 % [facility] Comment on above: (NOTE) The [place] [employer] recommends the following Guidelines: 5.7-6.4% Indicates increased risk for diabetes (Prediabetes). >6.5% Diagnostic of diabetes. In the absence of unequivocal hyperglycemia, results should be confirmed by repeat test. <7% Glycemic recommendation for non adults with diabetes. [employer], Standards of Medical Care in Diabetes, Volume 40; 2017 [facility] Glucose [Mass/Vol] 114 mg/dL Normal [facility] Comment on above: Performed By: #### L [id number] #### [place] [address] HbA1c (Bld) [Mass fraction] 5.6 % Normal 4.0-6.0 [facility] Comment on above: Result Comment: (NOT E) The [place] [employer] recommends the following Guidelines: 5.7-6.4% Indicates increased risk for diabetes (Prediabetes). >6.5% Diagnostic of diabetes. In the absence of unequivocal hyperglycemia, results should be confirmed by repeat test. <7% Glycemic recommendation for non adults with diabetes. [employer], Standards of Medical Care in Diabetes, Volume 40; 2017 Performed By: #### L [id number] #### [place] [address] LIPID PANEL (CORONARY RISK)o n 08-17-2023 Cholesterol [Mass/Vol] 139 mg/dL [facility] Comment on above: (NOTE) DESIRABLE: <200 MG/DL BORDERLINE: 200-239 MG/DL HIGHER RISK: >239 MG/DL Cholesterol in HDL [Mass/Vol] 52 mg/dL Low - [facility] Comment on above: (NOTE) DESIRABLE: > OR = 60 MG/DL HIGHER RISK: <40 MG/DL Cholesterol in LDL [Mass/Vol] 72 mg/dL [facility] Comment on above: (NOTE) OPTIMAL: <100 MG/DL NEAR/ABOVE OPTIMAL:100-129 MG/DL BORDERLINE HIGH: 130-159 MG/DL HIGH: 160-189 MG/DL VERY HIGH: > OR = 190 MG/DL Cholesterol in VLDL [Mass/Vol] 15 mg/dL [facility] Interpretation and review of laboratory results Abnormal [facility] Triglyceride [Mass/Vol] 73 mg/dL [facility] Comment on above: (NOTE) NORMAL: <150 MG/DL BORDERLINE HIGH: 150-199 MG/DL HIGH: 200-499 MG/DL VERY HIGH: > OR = 500 MG/DL Nonfasting specimens may have modest increases in Triglyceride levels ([employer], 2019) [facility] Cholesterol [Mass/Vol] 139 mg/dL Normal <200 [facility] Comment on above: Result Comment: (NOT E) DESIRABLE: <200 MG/DL BORDERLINE: 200-239 MG/DL HIGHER RISK: >239 MG/DL Performed By: #### L [id number] #### [place] [address] Cholesterol in HDL [Mass/Vol] 52 mg/dL Low >59 [facility] Comment on above: Result Comment: (NOT E) DESIRABLE: > OR = 60 MG/DL HIGHER RISK: <40 MG/DL Performed By: #### L [id number] #### [place] [address] Cholesterol in LDL [Mass/Vol] 72 mg/dL Normal <100 [facility] Comment on above: Result Comment: (NOT E) OPTIMAL: <100 MG/DL NEAR/ABOVE OPTIMAL:100-129 MG/DL BORDERLINE HIGH: 130-159 MG/DL HIGH: 160-189 MG/DL VERY HIGH: > OR = 190 MG/DL Performed By: #### L [id number] #### [place] [address] Cholesterol in VLDL [Mass/Vol] 15 mg/dL Normal 4-32 [facility] Comment on above: Performed By: #### L [id number] #### [place] [address] Triglyceride [Mass/Vol] 73 mg/dL Normal <[address] [facility] Comment on above: Result Comment: (NOT E) NORMAL: <150 MG/DL BORDERLINE HIGH: 150-199 MG/DL HIGH: 200-499 MG/DL VERY HIGH: > OR = 500 MG/DL Nonfasting specimens may have modest increases in Triglyceride levels ([employer], 2019) Performed By: #### L [id number] #### [place] [address] MEDICAL STAFFon 08-17-2023 Refinery Technician Authentication Interface Message Text Attestation signed by Mechelle Tovar MD at 08/18/23 0837 I have personally seen and examined this patient on 08/17/23. I have fully participated in the care of this patient. I have reviewed and agree with all pertinent clinical information including history, physical exam, labs, radiographic studies and the plan. I have also reviewed and agree with the medications, allergies and past medical history sections for this patient. I have participated in and reviewed the plan of care with the patient and interdisciplinary treatment team, and agree with treatment regimen below. [facility] INPATIENT PSYCHIATRY SUBSEQUENT PROGRESS NOTE 08/17/2023 Patient Name: Cristy Calderon : 1980 SUBJECTIVE: Interval History: Per nursing notes, patient slept 8 hours. She continues to endorse anxiety to nursing staff, and continues to feel hopeless with her current psychosocial stressors. She has not been participating in groups Interviewed pt in room this morning. She continues to appear dysthymic, and at this time intermittently endorses morbid ideations to the healthcare team. Patient is however future oriented and expresses desire to transfer to a sober living facility on discharge. She is agreeable to work with social work to find an acceptable facility. At this time, she denies any acute side effects from medications. Denies HI/AVH. No other needs or questions endorsed at this time. She does not feel safe discharging home as she does not feel supported by her significant other. Acute Events: No acute events overnight PRN's: Tylenol 650 mg at 2025 for pain, Atarax 50 mg at 2025 for anxiety, Trazodone 50 mg at 2025 for sleep PSYCH ROS, SOCIAL HX, FAMILY HX: Reviewed per yesterday's note, with updates as follows: None. FOCUSED MEDICAL ROS: Reviewed per yesterday's note, with updates as follows: None. INPATIENT MEDICATIONS venlafaxine, 75 mg, Daily cefuroxime, 500 mg, BID nicotine, 1 Patch, Daily ARIPiprazole, 5 mg, Daily ibuprofen, 800 mg, Q8H PRN acetaminophen, 650 mg, Q4H PRN magnesium hydroxide, 30 mL, Daily PRN alum haloperidoL, 5 mg, Q4H PRN Or haloperidol lactate, 5 mg, Q4H PRN traZODone, 50 mg, HS PRN MRX1 hydrOXYzine HCL, 50 mg, Q6H PRN LORazepam, 2 mg, Q4H PRN Or diazePAM, 2 mg, Q4H PRN Labs: Recent Results (from the past 24 hour(s)) COMPREHENSIVE METABOLIC PANEL Collection Time: 08/17/23 9:07 AM Result Value Ref Range Sodium 138 135 - 148 mEq/L Potassium 3.9 3.4 - 5.3 mEq/L Chloride 99 96 - 110 mEq/L Carbon Dioxide 27 19 - 32 mEq/L BUN 22 3 - 29 mg/dL Creatinine 0.7 0.5 - 1.2 mg/dL Glucose 101 (H) 70 - 99 mg/dL Calcium 9.7 8.5 - 10.5 mg/dL AST 18 0 - 46 U/L ALT 23 0 - 60 U/L Alkaline Phosphatase 72 23 - 144 U/L Bilirubin,Total 0.2 0.0 - 1.2 mg/dL Total Protein 7.0 6.0 - 8.3 g/dL Albumin 4.3 3.5 - 5.2 g/dL Globulin 2.7 1.9 - 3.6 g/dL A/G Ratio 1.6 0.8 - 2.6 Anion Gap 12 5 - 15 BUN/CREAT Ratio 31 (H) 7 - 25 Estimated GFR 110 >=60 mL/min/1.73m*2 OBJECTIVE: Vitals: 08/16/23 0730 08/16/23 1443 08/16/23 1956 08/17/23 0740 BP: 115/68 101/70 111/74 97/68 Pulse: 92 104 94 95 Resp: 14 14 16 16 Temp: 97.9 F (36.6 C) 97.3 F (36.3 C) 97.9 F (36.6 C) 97.8 F (36.6 C) SpO2: 95% 95% 97% 96% Weight: Height: MENTAL STATUS EXAM Cristy Calderon is a 43 year old female General Appearance: woman, lying in bed under several blankets, fair grooming, poor eye contact, would not open eyes throughout interview Consciousness: Alert Orientation: intact to person, place, time, and situation Mood: I want to go to sober living Affect: Dysthymic, constricted, congruent with mood, nonlabile. Attitude: Calm and cooperative Speech: Decreased to Normal rate, rhythm, volume Language: Normal unaccented Macanese; intact naming and repeating Fund of Knowledge: Intelligence is judged as average. Fund of knowledge is judged as average. Thought Process: Logical, linear, concrete Associations: Not loose Thought Content: Appropriate to conversation, no paranoia or delusions Perception/Hallucinat ions: Denies auditory and visual hallucinations. Does not appear to be responding to internal stimuli Suicidal Ideation/Homicidal Ideation: Endorses morbid ideation but denies suicidal plan at this time, denies homicidal ideations Recent and Remote Memory: intact Attention/Concentrati on: appropriate, intact Insight/Judgement: Limited/limited Strength/Tone/Abnorma l Movements: Moves all extremities against gravity while rotating throughout the bed Gait/Station: Declines formal assessment Risk assessment: Acute Risk To Self: mild Acute Risk to Others: mild ASSESSMENT: Cristy Carmelita Calderon is a 43 year old female with a past psychiatric history of MDD, recurr (more content not included)... Normal [facility] NURSING NOTEon 08-17-2023 Refinery Technician Authentication Interface Message Text 1899 Report received from Chitra Tony. 1929 Cristy states I don't want to talk about it right now .. She appears flat, and withdrawn. She continues to lay in bed. She refuses assistance with a shower or changing her clothes. Her behavior is appropriate. She politely refuses to answer if she is having any intrusive thoughts or SI or HI. Denies any further headaches. She is agreeable to prn atarax and Trazodone for sleep and anxiety. She chooses not to set any goals at this time. She refuses to participate in group. I encouraged that she just sit and listen today No Thank you . She provides direct eye contact with assessment. No notable tearfulness; demonstrates dysthymic behaviors. Gave 1:1 time, supportive care offered. Will maintain q 15 min checks and monitor for safety. 0333 Cristy asked for prn Atarax for anxiety. I just can't sleep . She states nothing in particular she wishes to disclose at this time. Will continue to monitor every 15 minutes for safety. Normal [facility] Refinery Technician Authentication Interface Message Text Goals Group offered, patient did not attend. Normal [facility] Refinery Technician Authentication Interface Message Text Self-Compassion Group offered, patient did not attend. Normal [facility] Refinery Technician Authentication Interface Message Text Safety Planning Group offered, patient did not attend. Normal [facility] Refinery Technician Authentication Interface Message Text Coping with Distress Intolerance Group offered, patient did not attend. Normal [facility] Refinery Technician Authentication Interface Message Text Recreational/Leisure group was offered, pt did not attend. Normal [facility] Refinery Technician Authentication Interface Message Text D) Patient resting in room, observed to be crying. States everything that can go wrong has been going wrong and it feels hopeless. I don't think there is anything I can change and I can't keep going this way. Denies current plan for suicide. Denies auditory/visual hallucinations, no noted response to internal stimuli. Exhibits good focus on conversation. Answers all questions correctly. Denies current needs from staff. A) Provided one-on-one nursing, educated on coping skills, educated on stress management, educated on medications, maintained safety with 15 minute checks. R) Pt continues resting in room, denies current needs. Normal [facility] Refinery Technician Authentication Interface Message Text Dealing with emotions group offered, patient did not attend. Normal [facility] Refinery Technician Authentication Interface Message Text The patient slept approximately 8 hours. Normal [facility] RPR REFLEX TO TPPAon 024 Reagin Ab RPR Ql (S) Non-Reactive Normal NON REACTIVE [facility] Comment on above: Performed By: #### L [id number] #### [place] [address] CARE PLANon 08-16-2023 Refinery Technician Authentication Interface Message Text Problem: Violence, Self/Other-Directed, Risk of Goal: Absence of violence Description: Goal: Patient will demonstrate 0 acts of aggression and self, others or property each shift. Intervention: Nurse will redirect patient to room or area of lower stimulation each shift. Nurse will provide 1:1 when an increased level of agitation or aggression in observed each shift. PRN medications will be offered for menacing, threatening or violent behavior each shift. Outcome: Progressing Note: Free from violence directed toward self or anyone else Problem: Suicide, Risk of Goal: Absence of self-harm Description: Goal: Patient will demonstrate 0 acts of aggression and self, others or property each shift. Intervention: Nurse will redirect patient to room or area of lower stimulation each shift. Nurse will provide 1:1 when an increased level of agitation or aggression in observed each shift. PRN medications will be offered for menacing, threatening or violent behavior each shift. Outcome: Progressing Note: Free from harm directed toward self, denies thoughts of suicide Normal [facility] NURSING NOTEon 08-16-2023 Refinery Technician Authentication Interface Message Text 1800: Goals group offered however pt did not attend. 1900: Self Esteem group offered however pt did not attend. Normal [facility] Refinery Technician Authentication Interface Message Text 190 Report received from Shravan TONY. 1929 Patient states I have a headache . Cristy describes clearly that her head pain started 2 days ago without known cause. She appears flat, and withdrawn. She is agreeable to prn Tylenol. She provides indirect eye contact with assessment. Denies any SI or HI. Voices being depressed, when asked what the contributing factors where life , she stated. Denies tearfulness. Depressed behaviors congruent with low appetite and difficulty with daily showers. Offered to help her with a shower and she refused. Anxiety 8/10 its pretty bad . No details on what makes her anxious or will improve her anxious thoughts and feelings. She does not provide any details of the reasons for her admission. Cristy is agreeable with prn medications for anxiety and sleep. Gave 1:1 time, supportive care offered. She does not want to set any goals at this time. I would like to see her get up out of the room and be more involved with therapy to explore if she really does not have any SI/HI thoughts. Will maintain q 15 min checks and monitor for safety Normal [facility] Refinery Technician Authentication Interface Message Text D: Assessment as charted, see flowsheets, General Orientation: (P) Alert and oriented times 4, Mental Status: (P) Blunted Speech: Clear, Coherent Mood: Calm - Patient Statement of Mood: Fine, I guess. Affect: Stable Thought process Clarity: Coherent Content: Other (comment) (Vague) Stream of Thought: Decreased thought flow Homicidal Ideation: Denies homicidal ideation Hallucinations: None Goals:Rest A: Psychiatric precautions: safety: maintained per orders; 1:1 nursing offered, groups/therapeutic milieu/personal hygiene encouraged. Q15 minute checks continued R:Cooperative with taking medications and denies any side effects. Denies needs at this time. Monitoring continued. Normal [facility] Refinery Technician Authentication Interface Message Text Mindfulness group offered, pt did not attend. Normal [facility] Refinery Technician Authentication Interface Message Text Patient slept approximately 8.75 hours this shift. Normal [facility] CARE PLANon 08-15-2023 Refinery Technician Authentication Interface Message Text MEDICAL NUTRITION THERAPY MALNUTRITION: Malnutrition Assessment: Unable to determine (w/o nutrition hx, NFPE) More Data Needed: Weight (measured) RECOMMENDATIONS: Diet Change: None Oral Supplement/Snack: (available PRN) Labs Requested: (lytes) Additional Comments: Pt with varied PO intakes at this time. Please continue to encourage oral intakes and record percent of meals consumed. Will monitor intakes for adequacy and implement nutrition interventions as needed. Discharge needs assessed on an ongoing basis pending clinical course. NUTRITION DIAGNOSIS: Nutrition Diagnosis: Inadequate oral intakes related to inability to consume adequate energy as evidence by varied PO intakes. NUTRITION RISK: Nutrition Risk: Moderate Nutrition Risk REASON FOR COMPLETION: Reason for Completion: Nurse referral CURRENT DIET: Current Diet Order: Regular Current Intake: varied; 25-100% x 5 TOTAL NUTRIENT NEEDS: Total Calorie Needs (kcal): 9056-6657 Total Protein Needs (gms): 70-80 (18%) Total Fluid Needs (ml): 0763-9653 Assessment: Usual Body Weight: (no recent weight hx) Additional Information: BMI 20.8 (based on unknown weight source) Last Bowel Movement: ( awhile (pt refused interventions at this time)) Nutrition Related Labs: Reviewed Nutrition Related Medications: Reviewed Regina Fernando, MS, RDN, LD Clinical Dietitian Available via Secure Chat Office: [phone] Weekends/Holidays: Please reach out via Secure Chat to [facility] All Dietitians, Inpatient *Please refer to the Medical Nutrition Therapy Evaluation/Assessment Documentation Flowsheet for full nutrition assessment *Please note: Serum albumin and prealbumin are no longer recognized as reliable or specific biomarkers for malnutrition. Roland SAUL, Braxton MR, Nikolas Gtz, et al. The use of visceral proteins as nutrition markers: an [employer]EN position paper. Nutr Clin Pract. 2020;36(1):22-28. Hilda PB, Mildred RR, Neo Gtz. Hypoalbuminemia: pathogenesis and clinical significance. JPEN J Parenter Enteral Nutr. 2019;43(2); 181-193. [facility] Refinery Technician Authentication Interface Message Text Patient was educated on Recreational Therapy and the importance of attending groups. Patient is expected to attend at least two groups to develop one to two positive ways to cope using activities. [facility] Refinery Technician Authentication Interface Message Text Problem: Suicide, Risk of Goal: Absence of self-harm Description: Goal: Patient will demonstrate 0 acts of aggression and self, others or property each shift. Intervention: Nurse will redirect patient to room or area of lower stimulation each shift. Nurse will provide 1:1 when an increased level of agitation or aggression in observed each shift. PRN medications will be offered for menacing, threatening or violent behavior each shift. Outcome: Progressing Problem: Violence, Self/Other-Directed, Risk of Goal: Absence of violence Description: Goal: Patient will demonstrate 0 acts of aggression and self, others or property each shift. Intervention: Nurse will redirect patient to room or area of lower stimulation each shift. Nurse will provide 1:1 when an increased level of agitation or aggression in observed each shift. PRN medications will be offered for menacing, threatening or violent behavior each shift. Outcome: Progressing Problem: Admission, Behavioral Health Goal: Knowledge of medication management Description: Goal: Patient will take 100 percent of medications as ordered each shift Intervention: Nurse will describe/ instruct about disease process medication is aimed at treating each shift. Nurse will describe/instruct what symptoms patient can expect to be alleviated with ordered medications each shift. Nurse will instruct on side effects and adverse effects. each shift. Nurse will instruct on importance of consistent, steady adherence to medication as ordered each shift. Nurse will employ teach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 Smoking status: Every Day Packs/day: 1.00 Years: 12.00 Additional pack years: 0.00 Total pack years: 12.00 Types: Cigarettes Smokeless tobacco: Never Substance and Sexual Activity Alcohol use: No Alcohol/week: 0.0 standard drinks of alcohol Comment: denies Drug use: No ALLERGIES: Patient has no known allergies. PHYSICAL EXAM: Physical Exam Vitals and nursing note reviewed. Constitutional: Appearance: Normal appearance. Eyes: General: No scleral icterus. Right eye: No discharge. Left eye: No discharge. Conjunctiva/sclera: Conjunctivae normal. Cardiovascular: Rate and Rhythm: Normal rate and regular rhythm. Pulses: Normal pulses. Heart sounds: Normal heart sounds. No murmur heard. No friction rub. No gallop. Pulmonary: Effort: Pulmonary effort is normal. No respiratory distress. Breath sounds: Normal breath sounds. No wheezing, rhonchi or rales. Chest: Chest wall: No tenderness. Abdominal: General: Abdomen is flat. There is no distension. Palpations: Abdomen is soft. Tenderness: There is no abdominal tenderness. There is no guarding or rebound. Musculoskeletal: Right lower leg: No edema. Left lower leg: No edema. Skin: General: Skin is warm. Comments: [place] on left and right cubital fossa, no skin necrosis, compartments soft, no Neurological: General: No focal deficit present. Mental Status: She is alert and oriented to person, place, and time. Labs Reviewed BASIC METABOLIC PANEL - Abnormal; Notable for the following components: Result Value Glucose 108 (*) BUN/CREAT Ratio 28 (*) All other components within normal limits DRUG SCREEN, URINE - Abnormal; Notable for the following components: Amphetamine, Urine Presumptive Positive (*) Marijuana (THC), Urine Presumptive Positive (*) All other components within normal limits Narrative: The submitted urine specimen was screened for the presence of the following compounds at the listed detection limits: Amphetamine, Methamphetamine 1000 ng/ml Barbituates 200 ng/ml Benzodiazepine 300 ng/ml Cocaine Metabolite 300 ng/ml Marijuana (THC) 50 ng/ml Opiates 300 ng/ml URINALYSIS, REFLEX WITH MICROSCOPIC - Abnormal; Notable for the following components: Clarity Urine Turbid (*) Specific [place] >1.030 (*) Blood, UA Large (*) Leukocyte Esterase Small (*) WBC's 11-25 (*) Bacteria, UA Many (*) All other components within normal limits SALICYLATE, SERUM - Abnormal; Notable for the following components: Salicylate Level <0.5 (*) All other components within normal limits ACETAMINOPHEN, SERUM - Abnormal; Notable for the following components: Acetaminophen Level 24 (*) All other components within normal limits COMPLETE BLOOD COUNT WITH DIFFERENTIAL - Abnormal; Notable for the following components: RBC 3.79 (*) Hematocrit 33.9 (*) All other components within normal limits HEPATIC FUNCTION PANEL SCREEN, URINE Narrative: Dilute urine specimens as indicated by a low specific gravity (<1.010) may not contain circulation representative levels of HCG. If is still suspected, a serum test or repeat urine test using first morning urine specimen should be considered. ETHANOL Narrative: For Medical Purposes only. RAPID COVID/FLU/RSV BY PCR EKG: Heart rate 85, QTc 471, poor wandering baseline, no ST elevation or depression, no T wave MRG, no acute T wave. Radiology / Procedures: ED COURSE & MEDICAL DECISION MAKING: Pertinent Labs & Imaging studies reviewed. (See chart for details) Workup and management supervised by Dr. Allen. On arrival, patient was slightly hypertensive, afebrile, tachycardic, on room air. Patient expressed suicidal ideation, although no concrete plan, with self-injury behavior and injection of the manage she endorsed to bilateral arms, patient is pink slipped. Psych panel ordered. Patient found to have infectious urine with 11-25 WBC, 1-5 squamous cell, many bacteria, leukocyte esterase positive. Patient positive for THC and amphetamine. Alcohol, salicylate nondetectable. Acetaminophen slightly elevated to 24, no abnormal transaminitis. Electrolytes within normal limits. No leukocytosis, hemoglobin stable. Social work consulted. Recommendation appreciated. Patient recommended to be admitted to psych unit. Patient will be admitted. Pt is medically cleared for psychiatric admission. FINAL IMPRESSION: ICD-10-CM ICD-9-CM 1. Suicidal ideation R45.851 V62.84 2. Self-injurious behavior Z72.89 V69.8 3. Urinary tract infection in female N39.0 599.0 4. Amphetamine use F15.90 305.70 Electronically signed by: Anil Napoles DO, 08/13/2023 9:20 PM [facility] 08-13-2023 Emergency department Note Pt arrives ambulatory to triage with complaints of suicidal ideations. Pt states she has a plan to inject herself with clorox. Pt states she did inject herself a week ago. Pt states she has abd pain and extremity pain. Pt a/ox4 VSS [facility] Evaluation note Diagnosis MDD (major depressive disorder), recurrent severe, without psychosis (HC CODE)- Primary Major depressive disorder, recurrent episode, severe, without mention of psychotic behavior Suicidal ideation Self-injurious behavior Unspecified nonpsychotic mental disorder Urinary tract infection in female Amphetamine use MDD (major depressive disorder), recurrent severe, without psychosis (HC CODE) [F33.2] Major depressive disorder, recurrent episode, severe, without mention of psychotic behavior Depression, unspecified depression type Suicidal ideation Amphetamine abuse (HC CODE) Nondependent amphetamine or related acting sympathomimetic abuse, unspecified documented in this encounter [facility] Summary Purpose Family History No Family History Records FoundNo Family History Records FoundNo Family History Records Found Advance Directives No Advanced Directives Records FoundNo Advanced Directives Records FoundNo Advanced Directives Records Found Additional Source Comments INFORMATION SOURCE (unrecogn ized section and content) DATE CREATED AUTHOR 06/06/2022 Provider Loc[facility] DATE CREATED AUTHOR AUTHOR'S ORGANIZ ATION 08/21/2023 [facility] DATE CREATED AUTHOR AUTHOR'S ORGANIZ ATION 02/12/2024 [facility] Reason for Visit (unrecogniz ed section and content) Reason Comments Suicidal Ideations Specialty Diagnoses / Procedures Referred By Patricia ovalles Referred To Contact Diagnoses Suicidal ideation Referral ID Status Reason Start Date Expiration Date Visits Re quested Visits Authorized [id number] 1 1 Scheduled Active and Recently Administ ered Medications (unrecognized section and content) Medication Order 08/18/2023 08/19/2023 08/20/2023 ARIPiprazole (ABILIFY) tablet 5 mg 5 mg, Oral, DAILY, First dose on 08/14/23 at 1225, Until Discontinued 0825 (Given - Provider: Chitra Alford RN) 0945 (Given - Provider: Maira Villagomez RN) 0848 (Given - Provider: Shravan Parrish, KRYSTA) cefuroxime (CEFTIN) tablet 500 mg (COMPLETED) 500 mg, Oral, *TWO TIMES A DAY, 14 doses, First dose on 08/14/23 at 0145, Last dose on Wed08/20/23 at 0900, Indications: urinary tract infection 0825 (Given - Provider: Chitra Alford RN)2338 (Given - Provider: Michel Brandt RN) 0944 (Given - Provider: Maira Villagomez RN)2000 (Given - Provider: Emily Hernandez RN) 0848 (Given - Provider: Shravan Parrish, KRYSTA) nicotine (HABITROL) 21 mg/24 hr transdermal patch 1 Patch 1 Patch, Transdermal, DAILY, First dose on 08/14/23 at 0900, Until Discontinued 0814 (Patch Removed - Provider: Chitra Alford RN)08 (Patch Applied - Provider: Chitra Alford RN) 0830 (Patch Removed - Provider: Maira Villagomez RN)0945 (Patch Applied - Provider: Maira Villagomez RN) 0840 (Patch Removed - Provider: Shravan Parrish RN)0849 (Patch Applied - Provider: Shravan Parrish RN)0859 (Canceled Entry - Provider: Shravan Parrish RN) venlafaxine (EFFEXOR XR) SR-capsule 150 mg 150 mg, Oral, DAILY, First dose (after last modification) on Ana María 08/19/23 at 0900, Until Discontinued 09 (Given - Provider: Maira Villagomez RN) 0848 (Given - Provider: Shravan Parrish RN) venlafaxine (EFFEXOR XR) SR-capsule 75 mg (CANCELED) 75 mg, Oral, DAILY, First dose (after last modification) on Wed08/16/23 at 0900, Until Discontinued 824 (Given - Provider: Chitra Alford RN) venlafaxine (EFFEXOR XR) SR-capsule 75 mg (COMPLETED) 75 mg, Oral, Once, 1 dose, On Wed08/18/23 at 1015 1055 (Given - Provider: Chitra Alford RN) PRN Medication Order 08/18/2023 08/19/2023 08/20/2023 acetaminophen (TYLENOL) tablet 650 mg 650 mg, Oral, EVERY 4 HOURS PRN, Starting on 08/15/23 at 0915, Until Discontinued, Pain, Mild Pain alum & mag hydroxide with simethicone (MAALOX,MYLANTA) oral SUSPension 15 mL 15 mL, Oral, PRN- NEEDED, Starting on 08/14/23 at 0605, Until Discontinued, epigastric distress diazePAM (VALIUM) inj syringe 2 mg(Linked Group 1) 2 mg, Intramuscular, EVERY 4 HOURS PRN, Starting on 08/14/23 at 1807, Until Discontinued, Agitation haloperidoL (HALDOL) tablet 5 mg(Linked Group 2) 5 mg, Oral, EVERY 4 HOURS PRN, Starting on 08/14/23 at 0605, Until Discontinued, other, severe agitation haloperidol lactate (HALDOL) injection solution 5 mg(Linked Group 2) 5 mg, Intramuscular, EVERY 4 HOURS PRN, Starting on 08/14/23 at 0605, Until Discontinued, other, severe agitation hydrOXYzine HCL (ATARAX) tablet 50 mg 50 mg, Oral, EVERY 6 HOURS PRN, Starting on 08/14/23 at 0605, Until Discontinued, Anxiety 033 (Given - Provider: Richie Cottrell RN)2030 (Given - Provider: Michel Brandt RN) 192 (Given - Provider: Emily Hernandez RN) 040 (Given - Provider: Emily Hernandez RN) ibuprofen (MOTRIN) tablet 800 mg 800 mg, Oral, EVERY 8 HOURS PRN, Starting on 08/15/23 at 0915, Until Discontinued, Pain, moderate-severe pain 2030 (Given - Provider: Michel Brandt, KRYSTA) LORazepam (ATIVAN) tablet 2 mg(Linked Group 1) 2 mg, Oral, EVERY 4 HOURS PRN, Starting on 08/14/23 at 1807, Until Discontinued, Agitation magnesium hydroxide (BUCIO MILK OF MAGNESIA) oral suspension 30 mL 30 mL, Oral, DAILY PRN, Starting on 08/14/23 at 0605, Until Discontinued, Constipation 2030 (Given - Provider: Michel Brandt, KRYSTA) traZODone (DESYREL) tablet 50 mg 50 mg, Oral, AT BEDTIME PRN, MAY REPEAT X1, Starting on 08/14/23 at 0605, Until Discontinued, Sleep 2138 (Given - Provider: Emily Hernandez RN) Linked Groups Order Group 1: LORazepam (ATIVAN) tablet 2 mgJump to med 2 mg, Oral, EVERY 4 HOURS PRN, Starting on 08/14/23 at 1807, Until Discontinued, Agitation Or diazePAM (VALIUM) inj syringe 2 mgJump to med 2 mg, Intramuscular, EVERY 4 HOURS PRN, Starting on 08/14/23 at 1807, Until Discontinued, Agitation Group 2: haloperidoL (HALDOL) tablet 5 mgJump to med 5 mg, Oral, EVERY 4 HOURS PRN, Starting on 08/14/23 at 0605, Until Discontinued, other, severe agitation Or haloperidol lactate (HALDOL) injection solution 5 mgJump to med 5 mg, Intramuscular, EVERY 4 HOURS PRN, Starting on 08/14/23 at 0605, Until Discontinued, other, severe agitation Care Teams (unrecognized sec tion and content) Logging Supervisor Relationship Specialty Start Date End Date Non[place], [place] [id number] [phone] (Work) PCP - General 04/12/13 Brie Srinivasan RN 07/14/09 Cachorro Oliva RN 07/14/09 Kamala Hernandez LPN 07/14/09 [place] [address] 07/14/09 Sarah Goldsmith RN 07/14/09 Elroy Srinivasan RN 07/14/09 Rajwinder Oliveira LPN 07/28/10 Tanisha Montes MA-Cred 10/26/11 Chiquita Wilkinson LPN 01/22/12 Kely Field, KRYSTA 04/13/12 Cayetano, Marcie Henderson RN 04/19/12 FOR RECORDS PERTAINING TO PATIENTS WHO ARE OR HAVE BEEN ENROLLED IN A CHEMICAL DEPENDENCY/SUBSTANCEABUSE PROGRAM, SOME INFORMATION MAY BE OMITTED. This clinical summary was aggregated from multiple sources. Caution should be exercised in using it in the provision of clinical care. This summary normalizes information from multiple sources, and as a consequence, information in this document may materially change the coding, format and clinical context of patient data. In addition, data may be omitted in some cases. CLINICAL DECISIONS SHOULD BE BASED ON THE PRIMARY CLINICAL RECORDS. [employer] [facility] provides no warranty or guarantee of the accuracy or completeness of information in this document.
== END 2024-05-31 07:06 | disposition home or self-care (01) ==
LOC: MAMMO 07:06
PROVIDERS: Visit Provider Obstetrics & Gynecology
DX: Z12.31 Encounter for screening mammogram for malignant neoplasm of breast (principal)
CPT/HCPCS: 77063; 77067